=== PATIENT | female | born 1975 | race Caucasian/White ===

== ENCOUNTER 2017-04-01 21:18 | Inpatient (IN) | payer MEDICAID ==
[~2017-04-01] VITALS: Ht 172.7 cm; Wt 99.1 kg
--- NOTE | ~2017-04-01 | ER ---
PATIENT'S NAME: BEA GUEVARA [facility] AGE: 42 Y [address] ROOM: [place] [id number] LOCATION: GPCU ADMIT DATE: 04/01/2017 ER/Outpatient Report DISCHARGE DATE: FAMILY PHYSICIAN: Shahzad Chacon MD ATTENDING PHYSICIAN: Shahzad Chacon Time of Arrival: 2125 hours. Time of Exam: 2130 hours. CHIEF COMPLAINT: Chest pain. HISTORY OF PRESENT ILLNESS: The patient states approximately 20 minutes prior to arrival she developed right-sided chest pain. States it hurts to take a deep breath or move. Denies having any injury to her chest. She reports that she did have a total hysterectomy done on March 24 in [place] due to stage I ovarian cancer. She reports she has a history of factor V Leiden and has been on Lovenox shots since surgery due to her clotting factor. She denies being dizzy or lightheaded. She has not been nauseated, has not vomited. States she has not been walking around as much as she normally does. She has not had any problems with the stitches. States she takes hydrocodone for pain and last took some this evening. ALLERGIES: NO KNOWN ALLERGIES. CURRENT MEDICATIONS: On the chart and reviewed by me. PAST MEDICAL HISTORY: Stage I ovarian cancer, factor V Leiden, DVT of her legs. PAST SURGERY: Total hysterectomy, March,. SOCIAL HISTORY: Denies use of tobacco, drugs, or alcohol. REVIEW OF SYSTEMS: All negative other than those mentioned in the HPI. PHYSICAL EXAMINATION: VITAL SIGNS: She weighed 101.4 kg. Blood pressure is 121/71, pulse of 100, respirations 24, temperature of 98 tympanic, and O2 saturation was 98% on room PATIENT'S NAME: BEA GUEVARA [facility] AGE: 42 Y [address] ROOM: [address] [address] LOCATION: GPCU ADMIT DATE: 04/01/2017 ER/Outpatient Report DISCHARGE DATE: FAMILY PHYSICIAN: Shahzad Chacon MD ATTENDING PHYSICIAN: Shahzad Chacon. GENERAL: She is awake, alert, and oriented x4. SKIN: [place], warm, and dry. RESPIRATORY: Respirations are even and nonlabored. Lung sounds are clear throughout. HEART: Regular rate and rhythm. ABDOMEN: Soft and nondistended. Bowel sounds are present. Her abdominal francisca are clean and intact. No redness of incision is noted. EMERGENCY DEPARTMENT COURSE: Saline lock was initiated. Lab work was drawn. EKG was completed. EKG shows a sinus rhythm. CBC is within normal limits. Chem Panel: Sodium is 139, potassium is 4, chloride 101, BUN is 12 with a creatinine of 0.9. Magnesium was 2.3. CPK was 63, CK-MB is 0.9, and troponin is negative. D-dimer is elevated at 7.09. A CT PE protocol was completed. Radiologist reports the patient has multiple right-sided pulmonary emboli with involvement of the middle and lower lobes. Overall burden is small. No definitive evidence of right heart strain. Dr. Huerta is on-call for the patient's primary provider, Dr. Chacon. He was here in the hospital and came and evaluated the patient. IMPRESSION: Pulmonary emboli, right middle and lower lobes. PLAN: The patient to be admitted per Dr. Huerta for Shahzad Chacon. PE protocol to be followed. The patient verbalizes understanding and plan of care. AIDEN BATISTA APRN FOR DO SOFIA ALMEIDA/homerol /[id number] d: 04/02/17 0128 t: 04/07/17 193, OUTPATIENT REPORT
--- NOTE | ~2017-04-01 | CON ---
PATIENT'S NAME: BEA GUEVARA [facility] AGE: 42 Y [address] ROOM: [address] [place], [place] [address] LOCATION: GPCU ADMIT DATE: 04/01/2017 Consultation DISCHARGE DATE: FAMILY PHYSICIAN: Shahzad Chacon MD ATTENDING PHYSICIAN: Shahzad Chacon DATE OF CONSULTATION: 04/03/2017 REFERRING PHYSICIAN: Krishan Brownlee MD REQUESTING PHYSICIAN: Shahzad Chacon MD REASON FOR CONSULTATION: Evaluation and management of a patient with severe chest pain and acute pulmonary embolism. CHIEF COMPLAINT: Chest pain. HISTORY OF PRESENT ILLNESS: This is a 42-year-old female with recent history of ovarian cancer, previous DVTs, and factor V Leiden mutation who was admitted on April 01, 2017, after she developed right-sided chest pain. She denies any other symptoms like cough, sputum production, or nasal drainage prior to that. She presented to the emergency department where a chest CT with PE protocol revealed right pulmonary emboli in subsegmental branches of the pulmonary artery. She was subsequently admitted to the hospital and started on a heparin drip. Her chest pain was reasonably controlled until April 03, 2017, when the pain became more intense, 9/10, in mid and lower right chest and radiating to the right shoulder and right neck. Morphine was ordered, but her pain was still very severe. For this reason, I was asked to come and evaluate the patient because there was concern of a new pulmonary embolic event. At the time of my evaluation, the patient was in severe pain, but otherwise she had normal vital signs, and was on room air. Flexeril was also ordered for possible muscle spasm, but had not been given. She seemed very anxious about the pain, and she was not able to take deep breaths. Dr. Chacon also ordered Ativan to be given. She denies fevers, chills, abdominal pain, hematuria, hemoptysis, or melena. On March 24, 2017, she had hysterectomy for stage I ovarian cancer and was placed on prophylactic doses of Lovenox afterwards. A few years ago, she was diagnosed with DVT, and workup to determine the etiology of her DVT revealed that she had factor V Leiden mutation. She failed Coumadin therapy and was placed on another agent, that she could not remember, for months after the DVT. As a result of the Coumadin failure, she has chronic left lower extremity clot and has intermittent left lower extremity swelling. PATIENT'S NAME: BEA GUEVARA [facility] AGE: 42 Y [address] ROOM: [address] [place], [place] [address] [facility] ADMIT DATE: 04/01/2017 Consultation DISCHARGE DATE: FAMILY PHYSICIAN: Shahzad Chacon MD ATTENDING PHYSICIAN: Shahzad Chacon PAST MEDICAL HISTORY: 1. Ovarian cancer. 2. Depression. 3. Factor V Leiden mutation. 4. Obesity. 5. History of chronic DVT in her left leg. PAST SURGICAL HISTORY: Total hysterectomy with bilateral salpingo-oophorectomy 10 days ago. SOCIAL HISTORY: There is no history of tobacco, alcohol, or illicit drug abuse. FAMILY HISTORY: Her father has hypertension. Her mother is healthy. There is no history of DVT or PE in close relatives. ALLERGIES: NO KNOWN DRUG ALLERGIES. CURRENT MEDICATIONS: Reviewed, as per chart. Pertinent medications as per History of Present Illness. REVIEW OF SYSTEMS: Pertinent positives and negatives as per History of Present Illness. She also has depression and pain at the recent incision site. Otherwise a 12-point review of systems was negative. PHYSICAL EXAMINATION: VITAL SIGNS: Temperature is 98.6, heart rate of 78, respiratory rate is 20, blood pressure is 106/70, and oxygen saturation 96% on room air. Weight 98.2 kg, height 5 feet 8 inches, with a BMI of 33.3. GENERAL: She is a pleasant, female, sitting up in bed, in no acute distress. Seems anxious at times. HEENT: Atraumatic head. PERRLA, EOMI. Anicteric sclerae. Moist oral mucosa. No pharyngeal erythema. NECK: Supple. No JVD. No LAD. Trachea midline. No thyromegaly. CARDIOVASCULAR: Regular rhythm and rate. No murmur, rubs, or gallops. RESPIRATORY: Decreased breath sounds at both lung bases. Clear to auscultation. Please note that the patient is not able to take full deep breaths because of chest pain. ABDOMEN: Soft, nontender, and nondistended. Bowel sounds are present. EXTREMITIES: No lower extremity edema. No cyanosis. No clubbing. No calf tenderness with dorsiflexion of the foot. PATIENT'S NAME: BEA GUEVARA [facility] AGE: 42 Y [address] ROOM: [address] [place], [place] [address] LOCATION: GPCU ADMIT DATE: 04/01/2017 Consultation DISCHARGE DATE: FAMILY PHYSICIAN: Shahzad Chacon MD ATTENDING PHYSICIAN: Shahzad Chacon NEUROLOGIC: Alert and oriented x4. Grossly nonfocal. LABORATORY DATA: Pertinent data as per History of Present Illness. I personally reviewed the chest CT images which showed the pulmonary emboli with small areas of infarct. The patient also had evidence of 2 nodules in her lungs, but no pleural effusions, and no other significant abnormalities. Cardiac echo from April 02, 2017 was essentially normal. She had no evidence of right ventricular strain or pulmonary hypertension. Venous Doppler of the lower extremities revealed chronic deep vein thrombosis in the left femoral vein, and no evidence of deep vein thrombosis or superficial thrombophlebitis in the right lower extremity. Complete metabolic profile from April 01, 2017, showed elevated alkaline phosphatase of 155, AST of 42, and ALT of 82. Elevated globulin of 4.9 with low albumin of 3.2. Otherwise, she had normal values. CBC from the time of admission showed platelets of 469 with the upper limit of normal being 450. Otherwise, she had normal values. ASSESSMENT: 1. Chest pain. This is most likely due to acute pulmonary embolism with possible pulmonary infarcts. I doubt she has a new pulmonary embolic event as the patient has no evidence of an acute right lower extremity deep venous thrombosis, and she had chronic left lower extremity deep venous thrombosis. Also, her vital signs are stable. 2. Acute pulmonary embolism. This is provoked in context of recent major abdominal surgery, new cancer diagnosis, and factor V Leiden mutation. She is currently on heparin drip with stable respiratory and hemodynamic status. 3. Chronic deep venous thrombosis. This is secondary to warfarin failure in the past. 4. Factor V Leiden mutation. Because of this, she is at risk of developing blood clots in the future if anticoagulation is stopped. 5. Ovarian cancer. This is a new diagnosis, and she will most likely need chemotherapy in the future. 6. Anxiety. This seems to be related to her chest pain. 7. Pulmonary nodules. Because of her recent diagnosis of cancer, this will need followup chest CTs. PLAN: 1. We will continue with heparin drip at the current point. 2. I will change her morphine to IV hydromorphone to prevent significant drop in the blood pressure that can happen with the morphine. 3. I will start her on Toradol intravenously and will monitor her renal function in the morning. 4. I will order a complete blood count. 5. I will perform a chest ultrasound to look for possible pleural effusion PATIENT'S NAME: BEA GUEVARA [facility] AGE: 42 Y [address] ROOM: [id number] [place] [id number] LOCATION: GPCU ADMIT DATE: 04/01/2017 Consultation DISCHARGE DATE: FAMILY PHYSICIAN: Shahzad Chacon MD ATTENDING PHYSICIAN: Shahzad Chacon on the right. 6. I agree with Ativan as needed for anxiety. 7. If her respiratory and hemodynamic status has remained stable overnight, then I will most likely start her on Xarelto indefinitely as an outpatient. I had a long discussion with the patient regarding the risks and benefits of different medications for her pulmonary embolism and DVT. The current assessment and plan was discussed with the patient and the nursing staff. I would like to thank you, Dr. Chacon, for giving me the opportunity to participate in this patient's care. SHWETA LOZANO MD RFN/modl /[id number] d: 04/04/17 1457 t: 04/04/17 1551, CONSULTATION REPORT
--- NOTE | ~2017-04-01 | ENPV ---
Vascular Lower Extremities DVT Study Procedure Demographics Patient Name BEA GUEVARA Date of Study 04/02/2017 Patient Number [id number] Gender Female Date of 1975 Age 42 Visit Number [id number] Height Accession Number [id number] Weight Room Number G6337 BSA BMI Referring Deanna Zuleta Interpreting Enoch Mccoy MD Physician Physician Physician Ordering Deanna Parth Zuleta [employer]cher[employer] Superintendent Physician Contact Lens Assistant Arash Zuleta Conclusions Summary No evidence of deep vein thrombosis or superficial thrombophlebitis in the right lower extremity . Smoke in the right popliteal vein. There is chronic deep vein thrombosis in the left femoral vein(s). Procedure Type of Study: Veins:Lower Extremities DVT Study, Venous Duplex Lower Extremity Bilateral. Indications for Study:Pulmonary embolism and DVT, History of. Patient Status:Routine. Study Location:Inpatient Portable. Technical Quality:Adequate visualization. Velocities are measured in cm/s ; Diameters are measured in cm Right Lower Extremities DVT Study Measurements Right 2D and Doppler Measurements + + + + +------+------+ + !Location !Visualized!Compressibility!Thrombosis!Signal!Reflux!Reflux ! ! ! ! ! ! ! !(sec) ! + + + + +------+------+ + !GSV Thigh !Yes !Yes !None !Phasic!No ! ! + + + + +------+------+ + !Common !Yes !Yes !None !Phasic!No ! ! !Femoral ! ! ! ! ! ! ! + + + + +------+------+ + !Prox !Yes !Yes !None !Phasic!No ! ! !Femoral ! ! ! ! ! ! ! + + + + +------+------+ + !Mid Femoral!Yes !Yes !None !Phasic!No ! ! + + + + +------+------+ + !Dist !Yes !Yes !None !Phasic!No ! ! !Femoral ! ! ! ! ! ! ! + + + + +------+------+ + !Popliteal !Yes !Yes !None !Phasic!No ! ! + + + + +------+------+ + !Gastroc !Yes !Yes !None !Phasic!No ! ! + + + + +------+------+ + !PTV !Yes !Yes !None !Phasic!No ! ! + + + + +------+------+ + !Peroneal !Yes !Yes !None !Phasic!No ! ! + + + + +------+------+ + Left Lower Extremities DVT Study Measurements Left 2D and Doppler Measurements +---------+ + + + +------+--------+ !Location !Visualized!Compressibility!Thrombosis!Signal !Reflux!Reflux ! ! ! ! ! ! ! !(sec) ! +---------+ + + + +------+--------+ !GSV Thigh!Yes !Yes !None !Phasic !No ! ! +---------+ + + + +------+--------+ !Common !Yes !Yes !None !Phasic !No ! ! !Femoral ! ! ! ! ! ! ! +---------+ + + + +------+--------+ !Prox !Yes !Partial !Chronic !Diminished!No ! ! !Femoral ! ! ! ! ! ! ! +---------+ + + + +------+--------+ !Mid !Yes !Partial !Chronic !Diminished!No ! ! !Femoral ! ! ! ! ! ! ! +---------+ + + + +------+--------+ !Dist !Yes !Partial !Chronic !Diminished!No ! ! !Femoral ! ! ! ! ! ! ! +---------+ + + + +------+--------+ !Popliteal!Yes !Yes !None !Phasic !No ! ! +---------+ + + + +------+--------+ !Gastroc !Yes !Yes !None !Phasic !No ! ! +---------+ + + + +------+--------+ !PTV !Yes !Yes !None !Phasic !No ! ! +---------+ + + + +------+--------+ !Peroneal !Yes !Yes !None !Phasic !No ! ! +---------+ + + + +------+--------+ Signature dtt: LEONARDA ORTIZ dtcarla: 04/02/17 [facility]8 Physician [place]
--- NOTE | ~2017-04-01 | ECHO ---
Transthoracic Echocardiography Report (TTE) Demographics Patient Name BEA GUEVARA Date of Study 04/02/2017 Patient Number [id number] Visit Number [id number] Date of 1975 Room Number G6337 Accession Number [id number] Gender Female Age 42 year(s) Referring Oswaldo Park MD [place] [employer] Ruy Watson RVT Physician Deanna Zuleta MD Physician Interpreting [facility] Script Writer Physician Erin HAGAN Supervising Ordering Physician Deanna Zuleta MD/HO HAGAN Nurse Stress Wiping Cloth Cutter Conclusions Contractility Score Summary Normal Left Ventricular contractility was noted. Summary Normal LV/RV size and systolic function. The estimated left ventricular ejection fraction is 60-65%. No significant valvular abnormalities. Diastolic assessment reveals normal relaxation. No evidence of pericardial effusion. Procedure Type of Study TTE procedure:2D Echocardiogram. Procedure Date Date: 04/02/2017 Start: 03:01 PM Study Location: Inpatient Portable Technical Quality: Adequate visualization Indications:Pulmonary embolus. Appropriate Use Criteria: 8 Patient Status: Routine Rhythm: NSR HR: 74 bpm BP: 118/67 mmHg M-Mode/2D Measurements LV Diastolic Dimension: 4.22 cm LV Systolic Dimension: 3.02 cm LV Septum Diastolic: 1.04 cm LV PW Diastolic: 1.11 cm AO Root Dimension: 2.1 cm Cardiac Output: 2.35 l/min AV Cusp Separation: 2 cm RV Diastolic Dimension: 2.24 cm EF Estimated: 60 % LVOT: 1.9 cm LVOT VTI: 11.2 cm LV Stroke volume: 31.74 ml TDI-S': 10.5 cm/s Doppler Measurements AV Peak Velocity: 1.38 m/s MV Peak E-Wave: 0.49 m/s AV Peak Gradient: 7.62 mmHg MV Peak A-Wave: 0.57 m/s AV Mean Gradient: 3 mmHg MV E/A Ratio: 0.85 LVOT Peak Velocity: 0.69 m/s MV P1/2t: 50 msec PV Peak Velocity: 0.81 m/s E' Septal Velocity: 0.07 m/s PV Peak Gradient: 2.62 mmHg E' Lateral Velocity: 0.14 m/s A' Septal Velocity: 0.1 m/s A' Lateral Velocity: 0.16 m/s Findings Left Ventricle The left ventricle is normal in size . Diastolic assessment reveals normal relaxation. Right Ventricle Normal right ventricle structure and function. Left Atrium Normal left atrial size. There is no evidence of patent foramen ovale or atrial septal defect by color Doppler. Right Atrium Normal right atrial size. Mitral Valve Normal mitral valve structure and function. Aortic Valve Normal aortic valve structure and function. Tricuspid Valve Normal tricuspid valve structure and function. Pulmonic Valve Normal pulmonic valve structure and function. Pericardial Effusion No evidence of pericardial effusion. Miscellaneous Visualized portions of the aortic root and ascending aorta appear normal in size. Pleural Effusion No evidence of pleural effusion. Contractility Score LV regional wall motion:(0-Non visualized 1-Normal 2-Hypokinesis 3-Akinesis 4-Dyskinesis 5-Aneurysm) Signature dtt: ERIN SANDERS dtd: 04/02/17 9801 Physician Self Edit
--- NOTE | ~2017-04-01 | HP ---
PATIENT'S NAME: BEA GUEVARA [facility] AGE: 42 Y [address] ROOM: [place] [address] LOCATION: GPCU ADMIT DATE: 04/01/2017 History & Physical DISCHARGE DATE: FAMILY PHYSICIAN: Shahzad Chacon MD ATTENDING PHYSICIAN: Shahzad Chacon DATE OF SERVICE: CHIEF COMPLAINT: Chest pain. HISTORY OF PRESENT ILLNESS: The patient is a 41-year-old female, who recently had surgery for ovarian cancer with total hysterectomy on 03/24/2017 and also history of factor V Leiden who is on Lovenox who developed right-sided chest pain at approximately 9:00 p.m. this evening. The patient presented to the emergency department who was found to have an elevated D-dimer and CT that showed right pulmonary emboli. The patient denies any shortness of breath, fevers, chills, abdominal pain, nausea, but does have a mild headache. PAST MEDICAL HISTORY: 1. Ovarian cancer. 2. Depression. 3. Factor V Leiden. 4. Obesity. PAST SURGICAL HISTORY: Hysterectomy total with bilateral salpingo-oophorectomy on 03/24/2017. SOCIAL HISTORY: The patient denies any tobacco or illicit drug use. FAMILY HISTORY: Noncontributory. ALLERGIES: NO KNOWN MEDICAL ALLERGIES. MEDICATIONS: Please see list. REVIEW OF SYSTEMS: A complete review of systems obtained, pertinent positives and negatives as mentioned in the HPI. PATIENT'S NAME: BEA GUEVARA [facility] AGE: 42 Y [address] ROOM: [place] [address] LOCATION: GPCU ADMIT DATE: 04/01/2017 History & Physical DISCHARGE DATE: FAMILY PHYSICIAN: Shahzad Chacon MD ATTENDING PHYSICIAN: Shahzad Chacon OBJECTIVE: VITAL SIGNS: The patient is afebrile with pulse of 100, respirations are stable and she is 98% on room air. GENERAL: The patient is alert and oriented, appears in no acute distress. Mood euthymic. HEENT: Head: Normocephalic, atraumatic. Eyes, conjunctivae clear. No scleral icterus. Mouth and oropharynx, mucosa moist and pink. No lesions or exudates. NECK: Supple. No lymphadenopathy or thyromegaly. HEART: Regular rate and rhythm. No rubs, murmurs, or gallops. LUNGS: Clear to auscultation bilaterally. ABDOMEN: Bowel sounds present. Mildly tender to palpation, but appropriate postsurgery. Cervical scar has francisca and is clean, dry and intact. VASCULAR: Pulses +2 and equal bilaterally. SKIN: No rashes or lesions. LYMPHATICS: No lymphadenopathy. NEURO: Cranial nerves 2 through 12 are grossly intact. DIAGNOSTIC DATA: CBC and CMP within normal limits. D-dimer is elevated. CT showed pulmonary emboli in the right lung. ASSESSMENT: 1. Pulmonary emboli. 2. History of ovarian cancer postop and total hysterectomy on 03/24/2017. 3. Factor V Leiden. 4. Depression. 5. Obesity. PLAN: At this time, we will start her on heparin drip per PE protocol. We will do an echocardiogram and ultrasound of the lower extremities in the morning. We will place her on telemetry and also do continuous pulse ox keeping her oxygen greater than 90%. We will do Tylenol and Zofran as needed and will continue to monitor her depression. MD NEREIDA MENA/keisha PATIENT'S NAME: BEA GUEVARA [facility] AGE: 42 Y [address] ROOM: [place] [address] [facility] AD[facility] DATE: 04/01/2017 History & Physical DISCHARGE DATE: FAMILY PHYSICIAN: Shahzad Chacon MD ATTENDING PHYSICIAN: Shahzad Chacon /[id number] P D: [id number] T: [id number] HISTORY & PHYSICAL
--- NOTE | ~2017-04-01 | CON ---
PATIENT'S NAME: ELIAN STYLES [facility] AGE: 42 Y [address] ROOM: [id number] [place], [place] [address] LOCATION: GPCU ADMIT DATE: 04/01/2017 Consultation DISCHARGE DATE: FAMILY PHYSICIAN: Shahzad Chacon MD ATTENDING PHYSICIAN: Shahzad Chacon REFERRING PHYSICIAN: Krishan Brownlee MD CHIEF COMPLAINT: Asked to evaluate the patient for anticoagulation recommendations. HISTORY OF PRESENT ILLNESS: Elian Styles is a 42-year-old female, admitted to [facility] on 04/01/2017 after feeling a pleuritic-type right-sided chest pain yesterday evening with a history of previous DVT, and knowing she has factor V Leiden, she worried about pulmonary embolism and has thus, presented for that reason. While in the ER, she was noted to have an elevated D-dimer of 7.09. A CT angiogram was performed, which did confirm multiple small pulmonary emboli. She was then admitted for anticoagulation and further treatment. The patient does have a recent diagnosis of ovarian cancer, reportedly stage I, status post hysterectomy and bilateral salpingo-oophorectomy on March 24, 2017. This was found after having some discomfort while doing yoga, which prompted her to be evaluated, and thus finding that diagnosis. She feels she has been healing well from surgery and was active at home, although not as active as she had been prior to the surgery. She does not smoke. She does not take oral contraceptives, but at the previous time of DVT, was taking oral contraceptives that were stopped at that time. She was treated with anticoagulation for several months, and then stopped. This was a number of years ago. The patient continued with a pleuritic-type chest pain if she coughs or sneezes, and tries to take a deep breath, although otherwise, feels well. No significant shortness of breath, and her vitals have been stable during this hospital stay. PAST MEDICAL HISTORY: Includes 1. History of DVT while on oral contraceptives, and finding the factor V Leiden mutation. 2. New diagnosis of ovarian cancer, reportedly stage I, status post hysterectomy and BSO on 03/24/2017. 3. Obesity. 4. Depression. SOCIAL HISTORY: The patient lives in [place]. She does not smoke and does not drink. She has one child. FAMILY HISTORY: PATIENT'S NAME: ELIAN STYLES [facility] AGE: 42 Y [address] ROOM: [id number] [place], [place] [address] LOCATION: [facility] ADMIT DATE: 04/01/2017 Consultation DISCHARGE DATE: FAMILY PHYSICIAN: Shahzad Chacon MD ATTENDING PHYSICIAN: Shahzad Chacon Maternal grandmother had breast cancer, and her paternal grandmother had colon cancer. HOME MEDICATIONS: Include 1. Ibuprofen. 2. Stool softener. 3. Lovenox 40 mg subq daily. 4. Zofran. 5. Hydrocodone/acetaminophen. 6. Currently, she is on heparin as an inpatient. PHYSICAL EXAMINATION: VITAL SIGNS: Blood pressure was 118/67, pulse was 88, respirations were 18, and temperature was 98.1 degrees. GENERAL: The patient appeared quite comfortable. No apparent distress. Accompanied by friends and family. HEENT: Pupils were equal, round, and reactive to light. Extraocular muscles were intact. Oral mucosa was moist and pink and without lesions. NECK: Without adenopathy. HEART: Regular rate and rhythm without murmurs. LUNGS: Clear bilaterally without wheezing, without rhonchi, no crackles appreciated. ABDOMEN: Bowel sounds were positive. She does have a midline incision, healing well with francisca in place without any erythema or drainage. EXTREMITIES: Without cyanosis, clubbing, or edema. LABORATORY DATA AND DIAGNOSTIC STUDIES: Radiologic review included Dopplers performed, which demonstrated a chronic left DVT and a PE protocol CT scan as reported above. IMPRESSION AND PLAN: Elian Styles is a 42-year-old female, with a history of factor V Leiden and deep venous thrombosis associated with estrogen use in the past, now with a pulmonary embolism after having hysterectomy on 03/24/2017. She had been treated with prophylactic Lovenox since that surgery, with concern of thrombosis; however, failed that. At this point, she is currently on a heparin drip, and has a stable vital signs. She is nine days postop at this point. I did discuss treatment options regarding anticoagulation in the past. She did have a very difficult time with Coumadin, and transitioned to Lovenox at that time. I do not believe she has coverage for medications. Thus, some anticoagulation may be difficult for her to recover. We gave her Xarelto samples in the office as she has completed nine days postop without any bleeding currently. That may be a reasonable transition from heparin once she is stable. PATIENT'S NAME: ELIAN STYLES [facility] AGE: 42 Y [address] ROOM: [place] [id number] LOCATION: [facility] ADMIT DATE: 04/01/2017 Consultation DISCHARGE DATE: FAMILY PHYSICIAN: Shahzad Chacon MD ATTENDING PHYSICIAN: Shahzad Chacon MD KINGS MCKEON/keisha /[id number] d: 04/03/17 0205 t: 04/26/17 1100, CONSULTATION REPORT
--- NOTE | ~2017-04-01 | DS ---
PATIENT'S NAME: BEA GUEVARA [facility] AGE: 42 Y [address] ROOM: [facility] [place], [place] [address] LOCATION: GPCU ADMIT DATE: 04/01/2017 Discharge Summary DISCHARGE DATE: 04/05/2017 FAMILY PHYSICIAN: Guillaume Millan MD ATTENDING PHYSICIAN: Guillaume Millan DISCHARGE DIAGNOSES: 1. Pulmonary embolism. 2. Chest pain. 3. Shortness of breath. DISCHARGE MEDICATIONS: 1. Colace 200 mg daily. 2. Xarelto 15 mg twice daily. 3. Percocet 5/325, 1 to 2 tablets every 6 hours as needed for pain, #30 given. 4. Flexeril 10 mg 3 times daily as needed. 5. Zofran 4 mg 1 tablet every 8 hours as needed. HISTORY OF PRESENT ILLNESS: Please see history and physical in chart for details. HOSPITAL COURSE: The patient admitted to the hospital secondary to pulmonary embolism, chest pain, shortness of breath. She was seen in consultation by Dr. Brownlee as well as Dr. Rosenthal. His recommendation is to continue the current treatment plan, Xarelto, and was very stable prior to discharge. Her pain was under control. Her breathing was stable, and she had no further complaints. Appropriate followup was in place prior to discharge. LAB AND RADIOLOGICAL TESTING: Please see chart for details. GUILLAUME MILLAN MD CSM/keisha /[id number] d: 04/30/17 0422 t: 04/30/17 1331, DISCHARGE SUMMARY
[2017-04-01 21:41] LABS: HEMATOCRIT 38.6 % (33.0-46.0); HEMOGLOBIN 12.6 g/dL (10.0-15.0); MCH 28.2 pg (27.0-34.0); MCHC 32.6 gm/dL (32.0-36.5); MCV 86.4 fl (83.0-98.0); MPV 8.8 fl (9.4-12.4); NRBC % 0 /100WBC (0-0.00); PLATELET COUNT 469 K/uL (150-450); RBC 4.47 M/uL (3.50-5.50); RDW-CV 13.2 % (11.9-14.6); WBC 8.3 K/uL (4.0-11.0)
[2017-04-01 21:42] LABS: BASOPHIL % 0.2 %; EOSINOPHIL # 0.3 K/uL (0.0-0.5); EOSINOPHIL % 3.5 %; IMMATURE GRANULOCYTE # 0.3 K/uL (0.0-0.3); IMMATURE GRANULOCYTE % 3.9 %; LYMPHOCYTE # 2.3 K/uL (0.8-4.0); MONOCYTE # 0.6 K/uL (0.0-1.0); MONOCYTE % 7.7 %; NEUTROPHIL # (ANC) 4.7 K/uL (1.8-7.8); NEUTROPHIL % 56.7 %
[2017-04-01 21:51] LABS: PROTIME 9.4 SECONDS (9.8-11.4); PTT 26 SECONDS (25-32)
[2017-04-01 22:00] LABS: ALBUMIN 3.2 gm/dL (3.5-5.0); ALK PHOS 155 IU/L (33-138); ALT 82 IU/L (12-78); AST 42 IU/L (10-40); BLOOD UREA NITROGEN 12 mg/dL (6-24); CALCIUM 8.9 mg/dL (8.5-10.5); CHLORIDE 101 mMol/L (96-110); CO2 29 mMol/L (22-32); CPK 63 IU/L (21-215); CREATININE 0.9 mg/dL (0.5-1.1); ESTIMATED GFR (MDRD EQUATION) > 60; MAGNESIUM 2.3 mg/dL (1.8-2.6); SODIUM 139 mMol/L (135-145); TOTAL BILIRUBIN 0.1 mg/dL (0.0-1.5); TOTAL PROTEIN 8.1 g/dL (6.0-8.4)
[2017-04-02] MEDS ORDERED: IBUPROFEN800 MG PO (00:36)
[2017-04-02] MEDS ORDERED: LOVENOX 4040 MG/0.4 SUB-Q (00:37)
[2017-04-02] MEDS ORDERED: STOOL SOFTENER100 MG PO (00:37)
[2017-04-02] MEDS ORDERED: ZOFRAN ODT4 MG PO (00:38)
[2017-04-02] MEDS ORDERED: TYLENOL EXTRA500 MG PO (00:39)
[2017-04-02] MEDS ORDERED: NORCO 5-325 TA1 EACH PO (00:39)
--- NOTE | 2017-04-02 05:10 | NUR ---
Pt admitted this evening by Dr Huerta for Dr alvarado for a PE. Pt is alert and oriented. Room air. Pt had an abdominal incision from a hysterectomy done March 24. Jacob are intact. Pt reports pain with deep breathes. Pt's respirations are swallow. Pt continues on a heparin gtt per PE protocol
[2017-04-02] MEDS ORDERED: MIRALAX PO527 GM/BOT PO (10:30)
--- NOTE | 2017-04-02 17:50 | NUR ---
Significant Event: A/O X 3. UP ONLY TO BATHROOM. NORCO FOR PAIN CONTROL. ABD. WITH INTACT LUIS E, NO REDNESS. AFEBRILE. HR SR IN 80'S. SBP 117-120. CONT. ON HEPARIN GTT. Follow up: NEXT PTTHP AT 1999
--- NOTE | 2017-04-03 05:15 | NUR ---
Pt up adlib. norco 2 tabs given 2x last at 0315ish. heparin at 1700 units/hr-next ptthp at 0900. no other changes Plan: ? start on xarelto if ok with aiden/jenny.
--- NOTE | 2017-04-03 15:21 | NUR ---
Significant Event: A/O X 3. C/O NECK BEING SO STIFF. NOT FEELING WELL TODAY. 02 SATS 93% ON ROOM AIR. AFEBRILE. SBP 107-119. ABD. INCISION WITH INTACT LUIS E, AND APPROX. INCISION. ZOFRAN PO FOR NAUSEA X 2 TODAY, NORCO FOR PAIN CONTROL OF CHEST. Follow up: CONT. TO MONITER PULM. PE.
--- NOTE | 2017-04-04 04:05 | NUR ---
Significant Event: VSS, PT AFEBRILE. CONTINUES ON RA WITH SATS FROM 91-96%. AT BEGINNING OF THE SHIFT, PT WAS COMPLAINING OF A GREAT DEAL OF PAIN IN HER RIGHT CHEST. PT HAD BEEN GIVEN A NORCO ABOUT AN HR PRIOR AND SHE STATED IT WAS NOT HELPING. PT BECAME VERY ANXIOUS, WORRYING THAT CLOT HAD MOVED OR GOTTEN BIGGER. CALLED DR MILLAN, GAVE ORDER FOR ATIVAN AND TO HAVE DR LOZANO COME UP EARLY. DR LOZANO CAME TO SEE PT AND WROTE ORDERS FOR IV TORADOL, DILUADID AND ATIVAN NEEDED. TORADOL HELPED GREATLY WITH PAIN, GIVEN X2 THIS SHIFT. PT THEN RESTED WELL. UP AD VERONICA. HEPARIN RUNNING AT 1700 WITH NEXT PTTHP AT 0400. PT A&OX3M, USES CALL LIGHT APPROPRIATELY. Follow up:
[2017-04-04 04:25] LABS: BASOPHIL % 0.2 %; EOSINOPHIL # 0.1 K/uL (0.0-0.5); EOSINOPHIL % 0.5 %; HEMATOCRIT 35.9 % (33.0-46.0); HEMOGLOBIN 11.6 g/dL (10.0-15.0); IMMATURE GRANULOCYTE # 0.2 K/uL (0.0-0.3); IMMATURE GRANULOCYTE % 1.4 %; LYMPHOCYTE # 1.3 K/uL (0.8-4.0); LYMPHOCYTE % 12.3 %; MCH 27.8 pg (27.0-34.0); MCHC 32.3 gm/dL (32.0-36.5); MCV 86.1 fl (83.0-98.0); MONOCYTE # 0.7 K/uL (0.0-1.0); MONOCYTE % 6.5 %; NEUTROPHIL # (ANC) 8.4 K/uL (1.8-7.8); NEUTROPHIL % 79.1 %; NRBC % 0 /100WBC (0-0.00); PLATELET COUNT 412 K/uL (150-450); RBC 4.17 M/uL (3.50-5.50); RDW-CV 13.4 % (11.9-14.6); WBC 10.6 K/uL (4.0-11.0)
[2017-04-04 04:33] LABS: ANION GAP 10.3 (10.0-19.0); BLOOD UREA NITROGEN 14 mg/dL (6-24); CALCIUM 9.1 mg/dL (8.5-10.5); CHLORIDE 103 mMol/L (96-110); CO2 28 mMol/L (22-32); CREATININE 0.8 mg/dL (0.5-1.1); ESTIMATED GFR (MDRD EQUATION) > 60; PHOSPHORUS 4.2 mg/dL (2.5-4.9); POTASSIUM 4.3 mMol/L (3.7-5.1); SODIUM 137 mMol/L (135-145)
--- NOTE | 2017-04-04 12:15 | NUR ---
Introduced self and role of care management to patient. She lives in [place] with her sister. She says her sister is helping her apply for medicaid and is working on gathering the paperwork they need to submit. She plans home when ready for discharge. Does not anticipate discharge needs at this time. Will follow.
--- NOTE | 2017-04-04 18:32 | NUR ---
Significant Event:VSS AFEBRILE. HR'S 70'S TO 90'S. BP'S 110'S TO 130'S. ON RA IN THE 90'S. IV TO RT AC SL. STARTED XARELTO TODAY AND MAY GO HOME POWER. BETTER PAIN CONTROL TODAY. NORCO X 2 LAST AT 1710. TORADOL X 1 TODAY. ZOFRAN X 1 TODAY. MAYBE HOME POWER. Follow up:
[2017-04-05 03:22] LABS: BASOPHIL % 0.1 %; EOSINOPHIL % 0.4 %; HEMATOCRIT 35.6 % (33.0-46.0); HEMOGLOBIN 11.5 g/dL (10.0-15.0); IMMATURE GRANULOCYTE # 0.1 K/uL (0.0-0.3); IMMATURE GRANULOCYTE % 1.3 %; LYMPHOCYTE # 1.1 K/uL (0.8-4.0); LYMPHOCYTE % 12.1 %; MCH 27.8 pg (27.0-34.0); MCHC 32.3 gm/dL (32.0-36.5); MCV 86.2 fl (83.0-98.0); MONOCYTE # 0.8 K/uL (0.0-1.0); MONOCYTE % 8.8 %; MPV 8.9 fl (9.4-12.4); NEUTROPHIL % 77.3 %; NRBC % 0 /100WBC (0-0.00); PLATELET COUNT 373 K/uL (150-450); RBC 4.13 M/uL (3.50-5.50); RDW-CV 13.5 % (11.9-14.6); WBC 9.1 K/uL (4.0-11.0)
[2017-04-05 03:43] LABS: ALBUMIN 2.9 gm/dL (3.5-5.0); ALK PHOS 141 IU/L (33-138); ALT 119 IU/L (12-78); ANION GAP 9.6 (10.0-19.0); AST 83 IU/L (10-40); BLOOD UREA NITROGEN 11 mg/dL (6-24); CALCIUM 9.4 mg/dL (8.5-10.5); CHLORIDE 105 mMol/L (96-110); CO2 30 mMol/L (22-32); CREATININE 0.9 mg/dL (0.5-1.1); ESTIMATED GFR (MDRD EQUATION) > 60; POTASSIUM 4.6 mMol/L (3.7-5.1); SODIUM 140 mMol/L (135-145)
[2017-04-05 03:51] LABS: TOTAL PROTEIN 7.9 g/dL (6.0-8.4)
[2017-04-05 03:52] LABS: TOTAL BILIRUBIN 0.4 mg/dL (0.0-1.5)
--- NOTE | 2017-04-05 04:17 | NUR ---
Significant Event: Pt A&Ox3. VS stable, remains on RA. Has had HR in high 90's up to 110's. Did have HR up to 130's on shift while walking around. C/o some lightheadedness, but no other symptoms presesnt. Pt remained afebrile on shift. Started Xarelto yesterday. No c/o nausea. Up ad janette, ind. Did recently have Rt ovarian hysterectomy, midline incision stapled and CDI. Gave last dose of [place] 2 tabs @ 0330. PIV VEE CARCAMO. Strong d/c home today. Follow up: Continue plan of care. Check labs regarding recent fever couple nights ago.
[2017-04-05] MEDS ORDERED: XARELTO15 MG PO (13:28)
[2017-04-05] MEDS ORDERED: XARELTO20 MG PO (13:29)
[2017-04-05] MEDS ORDERED: TYLENOL325 MG PO (13:33)
[2017-04-05] MEDS ORDERED: FLEXERIL10 MG (13:34)
[2017-04-05] MEDS ORDERED: FLEXERIL10 MG PO (13:35)
--- NOTE | 2017-04-05 14:36 | NUR ---
Discharge Summary: Patient A/O x 3. Up independently in the room. Vital signs stable: HR 82, RR 16, BP 111/61, O2 saturation 95%, temperature 98.1F, and denies pain or shortness of breath. Pain well controlled with Duck in right side. Discharge instructions included: new medications/medication changes, signs/symptoms to be alert for, follow-up appointments with Dr. Dane Chacon and Dr. Rosenthal, and a follow-up chest CT in 12 months. Patient verbalized understanding of all teaching and states she has no further questions at this time. Monitor and peripheral IV discontinued. [facility] and then home to self care with sister. No other needs at time of discharge. Junior RN 04/05/17 1410
== END 2017-04-05 14:10 | disposition disaster alternative care site (69) | DRG 176 ==
LOC: GMED 21:18 → GPCU 23:43
PROVIDERS: Emergency Medicine; Family Medicine; Internal Medicine Critical Care Medicine; ADMIT Family Medicine
DX: I26.99 Other pulmonary embolism without acute cor pulmonale (principal); D68.2 Hereditary deficiency of other clotting factors; D68.51 Activated protein C resistance; C56.9 Malignant neoplasm of unspecified ovary; I82.502 Chronic embolism and thrombosis of unspecified deep veins of left lower extremity; Z90.710 Acquired absence of both cervix and uterus; F32.9 Major depressive disorder, single episode, unspecified; E66.9 Obesity, unspecified; Z79.01 Long term (current) use of anticoagulants; R91.8 Other nonspecific abnormal finding of lung field; Z68.33 Body mass index [BMI] 33.0-33.9, adult
CPT/HCPCS: J1644; J1885; J2270; Q9967